=== PATIENT | male | born 1970 | race Hispanic/Latino ===

== ENCOUNTER 2024-09-23 19:14 | Emergency (ER) | payer BC ==
[~2024-09-23] VITALS: Ht 175.3 cm; Wt 73.0 kg
--- NOTE | 2024-09-23 19:59 | ERN ---
ED Note History of Present Illness Stated Complaint: ABDOMINAL PAIN,MULTIPLE COMPLAINTS Time Seen by MD: 19:29 Time Seen by Midlevel: 19:29 Dictation: The patient is a 54-year-old male with no past medical history who presents to the emergency department with complaints of epigastric abdominal pain associated with nausea nonbloody vomiting onset today. Patient denies any fevers, diarrhea or constipation. Allergies: Coded Allergies: No Known Drug Allergies (Verified Allergy, 05/14/12) Past Medical History RN Note Reviewed/Agreed w/PFSH: Yes Review of System Dictation Constitutional: Negative for fever,chills, and weight loss Eyes: Negative for injury, pain,redness, and discharge ENT: Negative for injury,pain or swelling Cardiovascular: Negative for chest pain, palpitations, and edema Respiratory: Negative for shortness of breath, cough, and wheezing, Abdomen/GI: Negative for diarrhea, and constipation positive for abdominal pain, nausea, vomiting Back: Negative for injury and pain : Negative for injury, bleeding and discharge MS/Extremity: Negative for injury and deformity Skin: Negative for rash, and discoloration Neuro: Negative for headache, weakness, numbness, tingling, and seizure Psych: Negative for suicide ideation, homicidal ideation, and hallucinations Initial Vital Sign VS Vital Signs Date Time Temp Pulse Resp B/P (MAP) Pulse Ox O2 Delivery O2 Flow Rate FiO2 09/23/24 20:20 98.1 60 20 146/81 100 Room Air 09/23/24 21:53 0 21 Physical Exam Dictation Vital Signs reviewed General Appearance: Alert, oriented x 3, no acute distress, well developed, nourished. Head and Face: non-traumatic. Eyes: PERRL, pink conjunctivas, eyelid no trauma, anterior chamber with arcus senilis. Ears: Pinnas intact and no signs of trauma or erythema ear canals clear and no discharge TM no erythema Nose: No discharge, no bleeding. Oropharynx: Mouth normal, tongue pink. pharynx clear,no erythema, tonsils no exudates, no abscesses noted, mucous membrane moist Neck: Supple, non-tender, no thyromegaly, no masses, no JVD, no bruits Breast:Deferred Chest:No tenderness, no crepitus, no paradoxical movement, no retractions Lungs:Clear, well-ventilated, symmetric, no rales, no wheezing, no rhonchi, no stridor, good breath sounds bilaterally Heart: Regular rate, regular rhythm, no murmur, no gallops Vascular: no peripheral edema, Abdomen: Soft, positive bowel sounds, nondistended, no guarding, Right upper quadrant tenderness, no rebound, no masses no hepatomegaly, no splenomegaly, no Jacobson's sign, no hernias. Rectal: Deferred Genital: Deferred Neurological: Normal speech, motor function intact, sensory function intact Musculoskeletal: Neck nontender, full range of motion, back nontender, full range of motion, Extremities: nontender, full range of motion Skin: Color pink, dry, no turgor, no rash, no lacerations, no abrasions, no contusions. Lymphatic: Deferred Results (Laboratory/Radiology) Laboratory/Radiology Laboratory Tests Test 09/23/24 19:57 09/23/24 21:55 White Blood Count 9.8 K/uL (4.8-10.8) Red Blood Count 5.40 MIL/uL (4.50-6.20) Hemoglobin 16.5 g/dL (14.0-18.0) Hematocrit 47.9 % (42-54) Mean Corpuscular Volume 88.7 fL (79-99) Mean Corpuscular Hemoglobin 30.6 pg (27.0-33.0) Mean Corpuscular Hemoglobin Concent 34.4 g/dL (32.0-36.0) Red Cell Distribution Width 13.6 % (11.0-15.5) Platelet Count 142 K/uL (130-400) Mean Platelet Volume 10.6 fL (7.5-10.5) H Immature Granulocyte % (Auto) 0.3 % (0-1) Neutrophils (%) (Auto) 79.5 % (40.0-77.0) H Lymphocytes (%) (Auto) 13.4 % (21.0-51.0) L Monocytes (%) (Auto) 6.6 % (3.0-13.0) Eosinophils (%) (Auto) 0.0 % (0.0-8.0) Basophils (%) (Auto) 0.2 % (0.0-5.0) Neutrophils # (Auto) 7.8 K/uL (1.8-7.7) H Lymphocytes # (Auto) 1.3 K/uL (1.0-4.8) Monocytes # (Auto) 0.6 K/uL (0.1-1.0) Eosinophils # (Auto) 0.00 K/uL (0.00-0.70) Basophils # (Auto) 0.02 K/uL (0.00-0.20) Absolute Immature Granulocyte (auto 0.03 K/uL (0-1) Nucleated Red Blood Cells 0.0 % (0.0-0.19) Sodium Level 139 mmol/L (136-145) Potassium Level 4.7 mmol/L (3.5-5.1) Chloride Level 101 mmol/L (101-111) Carbon Dioxide Level 33 mmol/L (21-32) H Blood Urea Nitrogen 12 mg/dL (7-18) Creatinine 0.9 mg/dL (0.5-1.3) Glomerular Filtration Rate Calc 101 mL/min (>90) Random Glucose 142 mg/dL (70-105) H Total Calcium 9.0 mg/dL (8.5-10.1) Total Bilirubin 0.4 mg/dL (0.2-1.0) Direct Bilirubin 0.2 mg/dL (0.0-0.3) Aspartate Amino Transf (AST/SGOT) 81 U/L (10-37) H Alanine Aminotransferase (ALT/SGPT) 151 U/L (12-78) H Alkaline Phosphatase 63 U/L (50-136) Total Creatine Kinase 135 U/L (21-232) # Troponin I High Sensitivity 5 ng/L (4-75) Total Protein 7.9 g/dL (6.0-8.3) Albumin 3.6 g/dL (3.5-5.0) Lipase 39 U/L (16-77) Urine Color YELLOW (YELLOW) Urine Appearance TURBID (CLEAR) Urine pH 8.5 (5.0-8.0) H Urine Specific [place] 1.031 (1.001-1.031) Urine Protein 70 mg/dL (NEGATIVE) H Urine Glucose (UA) NEGATIVE mg/dL (NEGATIVE) Urine Ketones 60 mg/dL (NEGATIVE) H Urine Occult Blood NEGATIVE (NEGATIVE) Urine Nitrate NEGATIVE (NEGATIVE) Urine Bilirubin NEGATIVE mg/dL (NEGATIVE) Urine Urobilinogen 4.0 mg/dL (0.2-1.0) H Urine Leukocyte Esterase NEGATIVE Isabel/uL Urine RBC 11-25 /HPF (0-1) H Urine WBC 6-10 /HPF (0-1) H Urine WBC Clumps (Auto) FEW /HPF (0-1) Urine Bacteria RARE /HPF (None Seen) Urine Opiates Screen NEGATIVE (NEGATIVE) Urine Barbiturates Screen NEGATIVE (NEGATIVE) Urine Phencyclidine Screen NEGATIVE (NEGATIVE) Urine Amphetamines Screen NEGATIVE (NEGATIVE) Urine Benzodiazepines Screen NEGATIVE (NEGATIVE) Urine Cocaine Screen POSITIVE (NEGATIVE) H Urine Marijuana (THC) Screen NEGATIVE (NEGATIVE) Labs Reviewed?: Yes ED Course ED Course Orders Procedure Category Date Status Time Cbc With Differential LAB 09/23/24 Complete 19:40 Troponin I High LAB 09/23/24 Complete Sensitivity 19:40 Urinalysis Profile LAB 09/23/24 Complete 19:40 12 Lead Ekg Tracing- EKG 09/23/24 Complete Technical 19:40 0.9%Nacl 1000ml (Ns PHA 09/23/24 Complete 1000ml) 20:00 Morphine 4mg Syg PHA 09/23/24 Complete (Morphine 4mg Syg) 20:00 Ondansetron 4mg Inj PHA 09/23/24 Complete (Zofran 4mg Inj) 20:00 Pantoprazole 40mg Inj PHA 09/23/24 Complete (Protonix 40mg Inj 20:00 Creatine Kinase, Total LAB 09/23/24 Complete 19:40 Lipase LAB 09/23/24 Complete 19:40 Basic Metabolic Panel LAB 09/23/24 Complete 19:40 Hepatic Function Panel LAB 09/23/24 Complete 19:40 Drug Screen Urine LAB 09/23/24 Complete 19:40 Us Abdominal Ruq\Ltd US 09/23/24 Resulted 19:40 Culture Urine MUKUL 09/23/24 In Process 22:25 Current Medications Medications (Trade) Dose Ordered Sig/Alexandre Route PRN Reason Start Time Stop Time Status Last Admin Dose Admin Morphine Sulfate (morPHINE 4MG SYG) 4 mg ONCE ONCE IVP 09/23/24 20:00 09/23/24 20:01 DC Ondansetron HCl (zoFRAN 4MG INJ) 4 mg ONCE ONCE IVP 09/23/24 20:00 09/23/24 20:01 DC Pantoprazole Sodium (PROTonix 40MG INJ) 40 mg ONCE ONCE IVP 09/23/24 20:00 09/23/24 20:01 DC Sodium Chloride 1,000 ml @ 0 mls/hr ONCE ONCE IV 09/23/24 20:00 09/23/24 20:01 DC Vital Signs Date Time Temp Pulse Resp B/P (MAP) Pulse Ox O2 Delivery O2 Flow Rate FiO2 09/23/24 21:53 98.1 60 20 146/81 100 Room Air* 0 21 09/23/24 20:20 98.1 60 20 146/81 100 Room Air [facility] [address] [place] [id number] IMAGING REPORT Signed PATIENT: MICHAEL JOHNSON MR#: [id number] : 1970 SEX: M AGE: 54 LOCATION: [facility] ORDER 42 STATUS: REG ER REPORT#: [id number] SERVICE 39 REASON: abd pain ORDERING PHYSICIAN: LAISHA CHAMBERS PROCEDURE: [id number] - US ABDOMINAL RUQ\LTD US ABDOMINAL RUQ\E\LTD HISTORY: abd pain COMPARISON: None FINDINGS: There is mild diffuse increased hepatic echogenicity and size with no focal lesion. The gallbladder is unremarkable. There is no wall thickening can cause pericholecystic fluid. Common duct measures 3 mm. The pancreas unremarkable. Right kidney measures 11.2 cm in length and there is no identified hydronephrosis or nephrolithiasis. Note is made of a 2.5 cm simple exophytic lower pole cortical cyst. IMPRESSION: Enlarged fatty liver. Simple right renal lower pole 2.5 cm cortical cyst. Gallbladder is unremarkable. DICTATED BY: JOSE POLLACK DO DATE: 09/23/242032 ELECTRONICALLY SIGNED BY: JOSE POLLACK DO DATE: 09/23/242053 Medical Decision Making MDM The patient is a 54-year-old male with no past medical history who presents to the emergency department with complaints of epigastric abdominal pain associated with nausea nonbloody vomiting onset today.. Patient denies any fevers, diarrhea or constipation. DX & DISP Disposition: Discharge Departure Impression: Primary Impression: Gastritis Condition: Stable Scripts Famotidine (Pepcid) 20 Mg Tablet 1 TAB PO BID for 10 Days, #20 TAB 0 Refills Prov: BONY SOSA 09/23/24 Ondansetron (Ondansetron Odt) 4 Mg Tab.rapdis 4 MG PO BID for 7 Days, #14 TAB Prov: BONY SOSA 09/23/24 Referrals: SELF,REFERRAL (PCP) Time of Disposition: 22:36 I have reviewed the case, and I agree with, Diagnosis and Plan I performed the substantive portion of the visit. I have reviewed and personally made and approve the management plan that is documented in the note by myself or the KRISTEN. I acknowledge for responsibility for the patient's management plan. LAISHA CHAMBERSP Sep 23, 2024 19:59 BONY SOSA Sep 23, 2024 22:38
[2024-09-23] MEDS ORDERED: morPHINE 4 MG SYG IVP ONE (20:00)
[2024-09-23] MEDS ORDERED: 0.9%NACL 1000ML 1,000 ML IV ONE (20:00)
[2024-09-23] MEDS ORDERED: ondanSETRON 4MG INJ IVP ONE (20:00)
[2024-09-23] MEDS ORDERED: PANTOPrazole 40 MG/VIAL IVP ONE (20:00)
[2024-09-23 20:06] LABS: BASOPHILS # (AUTO) 0.02 K/uL (0.00-0.20); BASOPHILS % (AUTO) 0.2 % (0.0-5.0); HEMATOCRIT 47.9 % (42-54); IMMATURE GRANULOCYTE ABSOLUTE 0.03 K/uL (0-1); LYMPHOCYTES # (AUTO) 1.3 K/uL (1.0-4.8); LYMPHOCYTES % (AUTO) 13.4 % (21.0-51.0); MEAN CORPUSCULAR HEMOGLOBIN 30.6 pg (27.0-33.0); MEAN CORPUSCULAR HGB CONC 34.4 g/dL (32.0-36.0); MEAN CORPUSCULAR VOLUME 88.7 fL (79-99); MONOCYTES # (AUTO) 0.6 K/uL (0.1-1.0); MONOCYTES % (AUTO) 6.6 % (3.0-13.0); NEUTROPHILS # (AUTO) 7.8 K/uL (1.8-7.7); NEUTROPHILS % (AUTO) 79.5 % (40.0-77.0); PLATELET COUNT (AUTO) 142 K/uL (130-400); RED CELL DISTRIBUTION WIDTH 13.6 % (11.0-15.5); WHITE BLOOD COUNT (AUTO) 9.8 K/uL (4.8-10.8)
--- NOTE | 2024-09-23 20:06 | EKG ---
[facility] Test Date: 2024-09-23 Test Time: 20:03:21 Pat Name: MICHAEL JOHNSON Department: ED Room: Gender: [employer]: [facility] : 1970 Requested By: LAISHA CHAMBERS Order Number: [id number] Reading MD: Serenity Alonzo Measurements Intervals [place] Rate: 58 P: 267 [place]: 120 QRS: 71 QRSD: 90 T: 52 QT: 412 QTc: 406 Interpretive Statements Sinus or ectopic atrial rhythm No previous ECG available for comparison Electronically Signed On 09-24-2024 09:50:12 CONE TENDER by Serenity Alonzo Please click the below link to view image of tracing.
[2024-09-23 20:19] LABS: CREATININE 0.9 mg/dL (0.5-1.3); POTASSIUM 4.7 mmol/L (3.5-5.1)
[2024-09-23 20:32] LABS: ALBUMIN 3.6 g/dL (3.5-5.0); BILIRUBIN,DIRECT 0.2 mg/dL (0.0-0.3); BILIRUBIN,TOTAL 0.4 mg/dL (0.2-1.0); TOTAL PROTEIN, SERUM 7.9 g/dL (6.0-8.3)
--- NOTE | 2024-09-23 20:54 | HMCIMG ---
US ABDOMINAL RUQ\E\LTD HISTORY: abd pain COMPARISON: None FINDINGS: There is mild diffuse increased hepatic echogenicity and size with no focal lesion. The gallbladder is unremarkable. There is no wall thickening can cause pericholecystic fluid. Common duct measures 3 mm. The pancreas unremarkable. Right kidney measures 11.2 cm in length and there is no identified hydronephrosis or nephrolithiasis. Note is made of a 2.5 cm simple exophytic lower pole cortical cyst. IMPRESSION: Enlarged fatty liver. Simple right renal lower pole 2.5 cm cortical cyst. Gallbladder is unremarkable.
[2024-09-23 21:53] VITALS: BP 146/81; PULSE 60; RESP 20; TEMP 98.1; O2SAT 100
[2024-09-23 22:19] LABS: AMPHET/METH SCREEN,URINE NEGATIVE (NEGATIVE); APPEARANCE,URINE TURBID (CLEAR); BARBITURATE SCREEN, URINE NEGATIVE (NEGATIVE); BENZODIAZEPINES SCREEN,URINE NEGATIVE (NEGATIVE); BILIRUBIN,URINE NEGATIVE (NEGATIVE); CANNABINOID SCREEN,URINE NEGATIVE (NEGATIVE); COCAINE SCREEN,URINE POSITIVE (NEGATIVE); COLOR,URINE YELLOW (YELLOW); GLUCOSE, URINE (UA) NEGATIVE (NEGATIVE); KETONES,URINE 60 mg/dL (NEGATIVE); LEUKOCYTE ESTERASE ,URINE NEGATIVE Leu/uL (NEGATIVE); NITRATE,URINE NEGATIVE (NEGATIVE); OCCULT BLOOD,URINE NEGATIVE (NEGATIVE); OPIATE SCREEN,URINE NEGATIVE (NEGATIVE); PH,URINE 8.5 (5.0-8.0); PHENCYCLIDINE SCREEN,URINE NEGATIVE (NEGATIVE); PROTEIN,URINE 70 mg/dL (NEGATIVE)
[2024-09-23 22:21] LABS: ADD UA MICROSCOPIC YES
[2024-09-23 22:22] LABS: BACTERIA,URINE RARE /HPF (None Seen); MUCUS,URINE MANY LPF (None Seen); WBC CLUMP FEW /HPF (0-1)
[2024-09-23] MEDS ORDERED: ONDA-243 PO (22:37)
[2024-09-23] MEDS ORDERED: FAMO-136 PO (22:37)
[2024-09-23] MEDS: morPHINE 2 MG SYG IM ONE (22:46)
[2024-09-24] MEDS: morPHINE 2 MG SYG IM ONE (00:14)
== END 2024-09-24 00:21 | disposition home or self-care (01) ==
LOC: EDH 19:14
DX: K29.70 Gastritis, unspecified, without bleeding (principal); R11.2 Nausea with vomiting, unspecified
CPT/HCPCS: 99284; 76705; 82550; 80076; 84484; 80048; 80305; 83690; 85025; 87086; 81001; 36415; 96372 ×2; 93005; J2270 ×2